=== PATIENT | male | born 1945 | race Caucasian/White ===

== ENCOUNTER 2016-10-31 13:11 | Emergency (ER) | payer MEDICARE, OTHER ==
[~2016-10-31] VITALS: Wt 125.0 kg
[~2016-10-31 13:11] MED LIST: AMLO5TAB4 PO; ASPI-781 PO; ATOR20TA38 PO; CLOP75TA4 PO; DAPA10TA PO; GLIP1TAB32 PO; METO100T13 PO; NITR0.4T6 SL; RANI300T PO; VALS160T20 PO
[2016-10-31] MEDS ORDERED: LEVEM SC (14:47)
--- NOTE | 2016-10-31 14:47 | RADRPT ---
PROCEDURE: XR Chest. CLINICAL INDICATION: Chest pain. TECHNIQUE: Single frontal view of the chest was obtained COMPARISON: Chest x-ray 12/19/2015 08:13 a.m. FINDINGS: There are atherosclerotic calcifications in the aortic arch. There are degenerative osteophytes in the thoracic spine. The soft tissues are generous. The heart, pulmonary vasculature, lung russell an d pleural spaces are normal. There is a suboptimal inspiration with monitoring draped across the fady st. IMPRESSION: 1. No evidence of active cardiopulmonary disease. 2. Atherosclerosis of the aortic arch. 3. Stable chest compared to 12/19/2015. RPTAT:AAJJ Physician [place] Date Time Electronically viewed and signed by Wilfrid Holland Physician on 10/31/2016 14:47 /
[2016-10-31] MEDS ORDERED: LIRA0.6P2 SQ (14:48)
[2016-10-31] MEDS ORDERED: TAMS0.4C2 PO (14:49)
[2016-10-31] MEDS ORDERED: CRES10 PO (14:49)
[2016-10-31 14:51] LABS: BASOPHILS % 0.3 % (0.0-2.0); EOSINOPHILS # 0.1 10^3/ul (0.0-0.5); EOSINOPHILS % 1.2 % (0.0-7.0); HEMATOCRIT 41.3 % (42.0-52.0); HEMOGLOBIN 13.9 g/dl (14.0-18.0); LYMPHOCYTES # 1.8 10^3/ul (0.8-2.9); LYMPHOCYTES % 22.4 % (15.0-51.0); MEAN CORPUSCULAR HGB CONC 33.7 g/dl (32.0-37.0); MEAN CORPUSCULAR VOLUME 83.3 fl (82.0-101.0); MEAN PLATELET VOLUME 8.4 fl (7.4-10.4); MONOCYTE # 0.5 10^3/ul (0.3-0.9); MONOCYTES % 6.1 % (0.0-11.0); NEUTROPHIL # 5.5 10^3/ul (1.6-7.5); PLATELET COUNT 220 10^3/UL (140-440); RED BLOOD COUNT 4.96 10^6/ul (4.70-6.10); RED CELL DISTRIBUTION WIDTH 14.3 % (11.5-14.5); UNCORRECTED WBC 7.9 10^3/ul (4.8-10.8); WHITE BLOOD COUNT 7.9 10^3/ul (4.8-10.8)
[2016-10-31 14:55] LABS: CONDITION 1
[2016-10-31 14:58] LABS: INR 1.07; PARTIAL THROMBOPLASTIN TIME 26.9 Sec (25.0-35.0); PROTIME 13.9 Sec (12.2-14.2); PT RATIO 1.1
[2016-10-31 15:00] LABS: CHLORIDE 105 mmol/L (97-110); POTASSIUM 4.1 mmol/L (3.5-5.1); SODIUM 144 mmol/L (135-144)
[2016-10-31 15:02] LABS: CREATININE 0.76 mg/dl (0.61-1.24)
[2016-10-31 15:03] LABS: ANION GAP 19 (8-16); BLOOD UREA NITROGEN 24 mg/dl (7-20); CALCIUM 9.3 mg/dl (8.4-10.2); CARBON DIOXIDE 24 mmol/L (21-31); GLUCOSE 185 mg/dl (70-220)
[2016-10-31 15:17] LABS: TROPONIN-I < 0.012 ng/ml (0.00-0.12)
--- NOTE | 2016-10-31 15:32 | ERA ---
ER Documentation Chief Complaint Date/Time DATE: 10/31/16 TIME: 15:28 Chief Complaint CHEST PAIN FOR 4 DAYS. PRESSURE WITH COUGH. NO N/V. NO DIAPHORESIS HPI This is a 71-year-old male who presents to the emergency room with a chief complaints of chest pain. The patient describes the chest pain as aching sharp and pressure-like chest pain in the center of his chest with no radiation. He states that is intermittent is been present on and off for the past 4 days. The patient denies any diaphoresis, nausea or vomiting associated with his pain. He does state that he has a history of 6 cardiac stents and came to the ER today for evaluation. ROS All systems reviewed and are negative except as per history of present illness. Medications Home Meds Active Scripts Clopidogrel Bisulfate* (Clopidogrel Bisulfate*) 75 Mg Tablet, 75 MG PO DAILY, # 90 TAB Prov:JOSSIE LONDON MD 12/20/15 Reported Medications Rosuvastatin Calcium* (Crestor*) 10 Mg Tablet, 10 MG PO QHS, #30 TAB 10/31/16 Tamsulosin Hcl* (Tamsulosin Hcl*) 0.4 Mg Cap.er.24h, 0.4 MG PO HS, CAP 10/31/16 Liraglutide (Victoza 3-Mateo) 0.6 Mg/0.1 Ml Pen.injctr, 1.8 MG SQ QAM, SYR 10/31/16 Insulin Detemir (Levemir) 100 Unit/1 Ml Vial, 35 UNIT SC QHS, VIAL 10/31/16 Nitroglycerin* (Nitroglycerin* SL) 0.4 Mg Tab.subl, 0.4 MG SL Q5MIN Y for CHEST PAIN, BOTTLE 12/19/15 Amlodipine Besylate* (Norvasc*) 5 Mg Tablet, 5 MG PO DAILY, TAB 12/19/15 Valsartan* (Diovan*) 160 Mg Tablet, 160 MG PO DAILY, TAB 12/19/15 Glipizide-Metformin (Glipizide-Metformin) 5-500 Tab, 2 TAB PO BID, TAB 12/19/15 Dapagliflozin Propanediol (Farxiga) 10 Mg Tablet, 10 MG PO DAILY, #30 TAB 12/19/15 Discontinued Reported Medications Ranitidine Hcl* (Ranitidine Hcl*) 300 Mg Tablet, 300 MG PO HS, #30 TAB 12/19/15 Discontinued Scripts Aspirin* (Ecotrin*) 325 Mg Tabec, 325 MG PO DAILY, #90 Prov:JOSSIE LONDON MD 12/20/15 Atorvastatin Calcium* (Atorvastatin Calcium*) 20 Mg Tab, 40 MG PO HS, #90 TAB Prov:JOSSIE LONDON MD 12/20/15 Metoprolol Succinate* (Toprol XL*) 100 Mg Tab.sr.24h, 50 MG PO DAILY, #90 TAB Prov:JOSSIE LONDON MD 12/20/15 Allergies Allergies: Coded Allergies: No Known Drug Allergy (Verified Allergy, Unknown, 10/31/16) PMhx/Soc History of Surgery: Yes (HEMORROIDECTOMY) Anesthesia Reaction: No Hx Neurological Disorder: No Hx Respiratory Disorders: Yes (SOB ON EXERTION) Hx Cardiac Disorders: Yes (CP, HTN) Hx Psychiatric Problems: No Hx Miscellaneous Medical Probl: No Hx Alcohol Use: Yes (OCCAS) Hx Substance Use: No Hx Tobacco Use: Yes Physical Exam Vitals Vital Signs Date Time Temp Pulse Resp B/P Pulse Ox O2 Delivery O2 Flow Rate FiO2 10/31/16 13:17 97.9 103 20 156/76 97 Physical Exam INITIAL VITAL SIGNS: Reviewed by me GENERAL: The patient is well developed and appropriate for usual state of health in no apparent distress HEENT: Pupils equal, round, and reactive to light. EOMI. There is no scleral icterus. NECK: C-spine is soft and supple, there is no meningismus. There is no cervical lymphadenopathy. LUNGS: Clear to auscultation bilaterally. There are no rales, wheezes or rhonchi. HEART: Tachycardic no murmurs, clicks, rubs or gallops. ABDOMEN: Soft, non-tender, non-distended. There are bowel sounds in all four quadrants. No rebound or guarding. EXTREMITIES: There is no peripheral cyanosis or edema. No focal swelling or erythema. NEUROLOGICAL: The patient moves all four extremities with 5/5 strength. Cranial nerves II - XII are intact. Normal gait. Alert and oriented SKIN: There is no apparent rash or petechiae. HEME/LYMPHATIC: There is no evidence of excessive bruising or lymphedema. PSYCHIATRIC: The patient does not appear anxious or depressed. Result Diagram: 10/31/16 1430 10/31/16 1430 Results 24 hrs Laboratory Tests Test 10/31/16 14:30 Activated Partial Thromboplast Time 26.9Sec Anion Gap 19 Basophils # 0.010^3/ul Basophils % 0.3% Blood Morphology Comment Blood Urea Nitrogen 24mg/dl Calcium Level 9.3mg/dl Carbon Dioxide Level 24mmol/L Chloride Level 105mmol/L Creatinine 0.76mg/dl Eosinophils # 0.110^3/ul Eosinophils % 1.2% Glucose Level 185mg/dl Hematocrit 41.3% Hemoglobin 13.9g/dl INR International Normalized Ratio 1.07 Lymphocytes # 1.810^3/ul Lymphocytes % 22.4% Mean Corpuscular Hemoglobin 28.0pg Mean Corpuscular Hemoglobin Concent 33.7g/dl Mean Corpuscular Volume 83.3fl Mean Platelet Volume 8.4fl Monocytes # 0.510^3/ul Monocytes % 6.1% Neutrophils # 5.510^3/ul Neutrophils % 70.0% Nucleated Red Blood Cells # 0.010^3/ul Nucleated Red Blood Cells % 0.0/100WBC Platelet Count 05595^3/UL Potassium Level 4.1mmol/L Prothrombin Time 13.9Sec Prothrombin Time Ratio 1.1 Red Blood Count 4.9610^6/ul Red Cell Distribution Width 14.3% Sodium Level 144mmol/L Troponin I < 0.012ng/ml White Blood Count 7.910^3/ul Procedures/MDM EKG: Rate/Rhythm: Sinus tachycardia QRS, ST, T-waves: [No changes consistent w/ acute ischemia] Impression: [Inferior infarct, age undetermined, left axis deviation EKG: Rate/Rhythm: [Normal Sinus Rhythm] QRS, ST, T-waves: Minimal voltage criteria for LVH, inferior infarct, age undetermined Impression: [Age undetermined inferior infarct, LVH Chest X-ray 1V Interpreted by me: Soft Tissue: Atherosclerosis of aortic arch Bones: No acute abnormalities Mediastinum/Cardiac Silhouette/Lungs: [No acute abnormalities] This is a 71-year-old male presents to the emergency room for evaluation of chest pain and pressure. The patient states he has had intermittent chest pain pressure for the past 4 days. His initial EKG did show sinus tachycardia. He was not hypoxic, or hypotensive. I did do a cardiac workup on this patient including a troponin which is normal at this time. His second EKG does show normal sinus rhythm, however he does have an age-indeterminate inferior infarct. This patient does have multiple risk factors including age, hypertension, diabetes, and 6 stents in the heart. I advised that this patient should stay in the hospital for repeat troponin, cardiac evaluation given his multiple stents and risk factors. This patient states that he does not want to stay in the hospital. He states his chest pain is better at this time. And he would like to leave. I advised the patient against leaving and stated that he would have to leave AGAINST MEDICAL ADVICE. I discussed the risk of leaving AGAINST MEDICAL ADVICE including the risk of . The patient and the patient 's son both verbalized understanding and have capacity to make medical decisions. The patient will be discharged home at this time with instructions to return to the emergency room if he develops any worsening chest pain. Against Medical Advice Note The patient verbalized understanding of risks of signing out against medical advice including and disability. The patient explained to me the reason for wanting to sign out against medical advice, [default value]. The patient is alert and oriented x 3 with decisional capacity and competence to sign out. They were welcomed to come back to ER and will be going home with discharge paperwork. Departure Diagnosis: Primary Impression: Chest pain Additional Impression: Normocytic anemia Condition: Stable MARCELINA CHOUDHURY DO Oct 31, 2016 15:32
[2016-10-31 15:36] VITALS: BP 136/70; PULSE 87; RESP 20; TEMP 98.3
== END 2016-10-31 15:43 | disposition home or self-care (01) ==
LOC: E/R 13:11
DX: R07.9 Chest pain, unspecified (principal); D50.0 Iron deficiency anemia secondary to blood loss (chronic); I10 Essential (primary) hypertension; F17.210 Nicotine dependence, cigarettes, uncomplicated; E11.9 Type 2 diabetes mellitus without complications; Z79.4 Long term (current) use of insulin; Z79.82 Long term (current) use of aspirin
CPT/HCPCS: 36415; 71010; 80048; 84484; 85025; 85610; 85730